=== PATIENT | female | born 1970 | race Caucasian/White ===

== ENCOUNTER → 2018-10-06 | Outpatient (CLI) | payer OTHER ==
[~2018-10-06] MED LIST: ASPI-496 PO; ASPI1TAB31 PO; CHOL10003 PO; CYAN50TA PO; IBUP-1623 PO; NICO1PAT31 TD
[2018-10-06 09:50] LABS: BASOPHILS # (AUTO) 0.08 x10^3/uL (0-0.1); BASOPHILS % (AUTO) 1 % (0-1); EOSINOPHILS # (AUTO) 0.09 x10^3/uL (0-0.4); EOSINOPHILS % (AUTO) 1 % (1-7); LYMPHOCYTES # (AUTO) 2.28 x10^3/uL (1-3.4); LYMPHOCYTES % (AUTO) 31 % (22-44); MD NO; MEAN CORPUSCULAR HEMOGLOBIN 32.4 pg (27.0-34.8); MEAN CORPUSCULAR HGB CONC 34.1 g/dL (32.4-35.8); MEAN PLATELET VOLUME 8.3 fL (7.4-10.4); MONOCYTES # (AUTO) 0.53 x10^3/uL (0.2-0.8); MONOCYTES % (AUTO) 7 % (2-9); NEUTROPHILS # (AUTO) 4.42 x10^3/uL (1.8-6.8); NEUTROPHILS % (AUTO) 60 % (42-75); PLATELET COUNT 256 x10^3/uL (130-400); RED CELL DISTRIBUTION WIDTH 12.4 % (9.6-15.2)
[2018-10-06 09:54] LABS: HCT (SEDRATE) 46.6 % (34.6-47.8)
[2018-10-06 09:58] LABS: INTERNATIONAL NORMALIZED RATIO 0.95 (0.93-1.1); PROTHROMBIN TIME 10.1 Seconds (9.6-11.5)
[2018-10-06 09:59] LABS: ALANINE AMINOTRANSFERASE 32 U/L (12-78); ALBUMIN 3.7 g/dL (3.4-5.0); ANION GAP 5 mmol/L (5-15); CALCIUM 9.1 mg/dL (8.5-10.1); CHLORIDE 109 mmol/L (98-107); CREATININE 0.79 mg/dL (0.55-1.02)
[2018-10-06 10:01] LABS: ALKALINE PHOSPHATASE 88 U/L (45-117); BILIRUBIN,TOTAL 0.3 mg/dL (0.2-1.0); TOTAL PROTEIN 7.2 g/dL (6.4-8.2)
[2018-10-06 10:03] LABS: MICROSCOPIC NOT IND
[2018-10-06 10:04] LABS: CULTURE INDICATED? NO
== END | disposition home or self-care (01) ==
LOC: STAR 08:49
PROVIDERS: ATTEND Orthopaedic Surgery Orthopaedic Surgery of the Spine
DX: Z01.818 Encounter for other preprocedural examination (principal); M47.22 Other spondylosis with radiculopathy, cervical region
CPT/HCPCS: 36415; 71046; 80053; 80074; 81003; 85025; 85610; 85651; 85730; 87806; 93005; G0475

== ENCOUNTER → 2019-10-29 | Outpatient (CLI) | payer OTHER ==
[~2019-10-29] MED LIST changes: +HYDR-3237 PO
[2019-10-29 12:29] LABS: MICROSCOPIC NOT IND
[2019-10-29 12:33] LABS: HCT (SEDRATE) 50.7 % (34.6-47.8)
[2019-10-29 12:34] LABS: BASOPHILS # (AUTO) 0.04 x10^3/uL (0-0.1); BASOPHILS % (AUTO) 0 % (0-1); EOSINOPHILS # (AUTO) 0.14 x10^3/uL (0-0.4); EOSINOPHILS % (AUTO) 2 % (1-7); LYMPHOCYTES % (AUTO) 33 % (22-44); MD NO; MEAN CORPUSCULAR HEMOGLOBIN 32.5 pg (27.0-34.8); MEAN CORPUSCULAR HGB CONC 33.1 g/dL (32.4-35.8); MEAN CORPUSCULAR VOLUME 98.1 fL (80-100); MEAN PLATELET VOLUME 8.7 fL (7.4-10.4); MONOCYTES # (AUTO) 0.55 x10^3/uL (0.2-0.8); MONOCYTES % (AUTO) 6 % (2-9); NEUTROPHILS # (AUTO) 5.65 x10^3/uL (1.8-6.8); NEUTROPHILS % (AUTO) 60 % (42-75); PLATELET COUNT 244 x10^3/uL (130-400); RED BLOOD COUNT 5.18 x10^6/uL (3.82-5.3); RED CELL DISTRIBUTION WIDTH 12.7 % (9.6-15.2)
[2019-10-29 12:34] LABS: CULTURE INDICATED? NO
[2019-10-29 12:38] LABS: INTERNATIONAL NORMALIZED RATIO 0.92 (0.93-1.1); PROTHROMBIN TIME 9.7 Seconds (9.6-11.5)
[2019-10-29 12:41] LABS: ALANINE AMINOTRANSFERASE 25 U/L (12-78); ALBUMIN 4.1 g/dL (3.4-5.0); ANION GAP 4 mmol/L (5-15); CALCIUM 9.2 mg/dL (8.5-10.1); CHLORIDE 107 mmol/L (98-107); CREATININE 0.71 mg/dL (0.55-1.02)
[2019-10-29 12:43] LABS: ALKALINE PHOSPHATASE 86 U/L (45-117); BILIRUBIN,TOTAL 0.4 mg/dL (0.2-1.0); TOTAL PROTEIN 7.7 g/dL (6.4-8.2)
== END | disposition home or self-care (01) ==
LOC: STAR 11:15
PROVIDERS: ATTEND Orthopaedic Surgery Orthopaedic Surgery of the Spine
DX: Z01.818 Encounter for other preprocedural examination (principal); M47.22 Other spondylosis with radiculopathy, cervical region; Z79.899 Other long term (current) drug therapy
CPT/HCPCS: 36415; 71046; 80053; 80074; 81003; 85025; 85610; 85651; 85730; 87806; 93005; G0475

== ENCOUNTER 2019-11-16 05:41 | Inpatient (IN) | payer OTHER ==
[~2019-11-16] VITALS: Ht 175.3 cm; Wt 72.5 kg
[2019-11-16 06:16] VITALS: BP 166/92
[2019-11-16] MEDS ORDERED: LACTATED RINGERS 1,000 ML IV SCH (06:18)
[2019-11-16] MEDS ORDERED: CELE200C PO (06:20)
[2019-11-16] MEDS ORDERED: BUPIVACAINE/PF 0.25% ONE (06:37)
[2019-11-16] MEDS ORDERED: BUPIVACAINE/PF 0.5% ONE (06:37)
[2019-11-16] MEDS ORDERED: THROMBIN (RECOMBINANT) 5,000 UNIT VIAL TP ONE (06:37)
[2019-11-16] MEDS ORDERED: INDIGO CARMINE 0.8%, 5ML ONE (06:37)
[2019-11-16] MEDS ORDERED: BACITRACIN 50,000 UNIT ONE (06:38)
[2019-11-16] MEDS ORDERED: LIDOCAINE 1%, 20ML ONE (06:38)
[2019-11-16] MEDS ORDERED: FENTANYL PF 250 MCG/5ML ONE (07:05)
[2019-11-16] MEDS ORDERED: MIDAZOLAM 1 MG/ML, 2ML ONE (07:05)
[2019-11-16] MEDS ORDERED: SCOPOLAMINE PATCH, 1.5MG PATCH.TD72 TD ONE ×2 (07:23→07:30)
[2019-11-16] MEDS ORDERED: ONDANSETRON 2MG/ML, 2ML ONE (07:49)
[2019-11-16] MEDS ORDERED: ROCURONIUM 10MG/ML,5ML ONE (07:49)
[2019-11-16] MEDS ORDERED: SUCCINYLCHOLINE 20 MG/ML, 10ML ONE (07:49)
[2019-11-16] MEDS ORDERED: PROPOFOL 10 MG/ML, 20ML ONE (07:49)
[2019-11-16] MEDS ORDERED: CEFAZOLIN 1,000 MG ONE (07:49)
[2019-11-16] MEDS ORDERED: LABETALOL 5MG/ML, 20ML IV PRN (08:30)
[2019-11-16] MEDS ORDERED: PROMETHAZINE 25 MG/ML, 1ML IV PRN (08:30)
[2019-11-16] MEDS ORDERED: HYDROmorphone 1 MG/ML, 1ML INJ IV PRN (08:30)
[2019-11-16] MEDS ORDERED: ONDANSETRON 2MG/ML, 2ML IVPush PRN (08:30)
[2019-11-16] MEDS ORDERED: hydrALAzine 20 MG/ML, 1ML IV PRN (08:30)
[2019-11-16] MEDS ORDERED: METOCLOPRAMIDE 5 MG/ML, 2ML IV PRN (08:30)
[2019-11-16] MEDS ORDERED: ALBUTEROL SULFATE 2.5 MG/3 ML NPPB PRN (08:30)
[2019-11-16] MEDS ORDERED: KETOROLAC 30 MG/1 ML IV PRN (08:30)
[2019-11-16] MEDS ORDERED: MEPERIDINE/PF 25MG/0.5ML IVPush PRN (08:30)
[2019-11-16] MEDS ORDERED: OXYcodone 5 MG/5 ML ORAL.SOL UDC PO PRN (08:30)
[2019-11-16] MEDS ORDERED: FENTANYL PF 100 MCG/2ML ONE (10:06)
[2019-11-16] MEDS ORDERED: OXYcodone 5 MG/5 ML ORAL.SOL UDC ONE (10:07)
[2019-11-16] MEDS: FENTANYL PF 100 MCG/2ML IV PRN ×2 (10:11→10:23)
[2019-11-16] MEDS ORDERED: hydrALAzine 20 MG/ML, 1ML ONE (10:25)
[2019-11-16] MEDS ORDERED: METHOCARBAMOL 1,000 MG in DEXTROSE 5% 100 ML IV ONE (10:30)
[2019-11-16 11:29] VITALS: BP 144/85
[2019-11-16] MEDS ORDERED: DIAZEPAM 5 MG/ML, 2ML IV PRN (12:00)
[2019-11-16] MEDS ORDERED: OXYcodone/APAP 5/325MG TABLET PO PRN (12:00)
[2019-11-16] MEDS ORDERED: HYDROcodone/APAP 5/325 TABLET PO PRN (12:00)
[2019-11-16] MEDS ORDERED: ONDANSETRON 2MG/ML, 2ML IV PRN (12:00)
[2019-11-16] MEDS ORDERED: DIAZEPAM 5 MG TABLET PO PRN (12:00)
[2019-11-16] MEDS: DEXAMETHASONE 4 MG/ML, 1ML IV SCH ×2 (12:04→18:26)
[2019-11-16] MEDS: D5%-0.9% NACL+KCL 20MEQ 1,000 ML IV SCH ×2 (13:38→21:30)
[2019-11-16 13:50] VITALS: BP 121/70
[2019-11-16] MEDS: GABAPENTIN 300 MG CAPSULE PO SCH ×2 (16:25→21:50)
[2019-11-16] MEDS: CEFAZOLIN PMX 1GM/50ML 50 ML IVPB SCH (16:25)
[2019-11-16 18:54] VITALS: BP 132/77
[2019-11-16] MEDS ORDERED: LABETALOL 5MG/ML, 20ML IVPush PRN (19:30)
[2019-11-17] MEDS: DEXAMETHASONE 4 MG/ML, 1ML IV SCH (00:17)
[2019-11-17] MEDS: CEFAZOLIN PMX 1GM/50ML 50 ML IVPB SCH (00:17)
[2019-11-17 00:47] VITALS: BP 124/55
[2019-11-17 03:41] VITALS: BP 124/79
[2019-11-17] MEDS: D5%-0.9% NACL+KCL 20MEQ 1,000 ML IV SCH (05:30)
[2019-11-17 06:32] VITALS: BP 112/68
[2019-11-17] MEDS: GABAPENTIN 300 MG CAPSULE PO SCH (08:26)
[2019-11-17] MEDS ORDERED: SENNA/DOCUSATE TABLET PO SCH (09:00)
[2019-11-17 11:00] VITALS: BP 118/64
== END 2019-11-17 11:40 | disposition home or self-care (01) | DRG 473 ==
LOC: OUT 05:41 → 4NE 11:11 → OUT 11:25 → 4NE 11:25 → DCLOUNGE 11-17 11:25
PROVIDERS: ADMIT Orthopaedic Surgery Orthopaedic Surgery of the Spine; ATTEND Orthopaedic Surgery Orthopaedic Surgery of the Spine
PROC: 0RB30ZZ Excision of Cervical Vertebral Disc, Open Approach (ICD-10-PCS; 2019-11-16)
PROC: 4A11X4G Monitoring of Peripheral Nervous Electrical Activity, Intraoperative, External Approach (ICD-10-PCS; 2019-11-16)
PROC: 0RG10A0 Fusion of Cervical Vertebral Joint with Interbody Fusion Device, Anterior Approach, Anterior Column, Open Approach (ICD-10-PCS; principal; 2019-11-16 07:30)
DX: M50.122 Cervical disc disorder at C5-C6 level with radiculopathy (principal); M48.02 Spinal stenosis, cervical region; M47.22 Other spondylosis with radiculopathy, cervical region; M40.202 Unspecified kyphosis, cervical region; E78.5 Hyperlipidemia, unspecified; Z90.710 Acquired absence of both cervix and uterus; Z82.49 Family history of ischemic heart disease and other diseases of the circulatory system; Z91.030 Bee allergy status
CPT/HCPCS: 72040; J3490; S0020; 95938; 95941; C1713; G0378; J0690; J1100; J2250; J2270; J2405; J2704; J3010; C1762; J0330; J0360; J2800; J3480; J7120